=== PATIENT | male | born 1990 ===

== ENCOUNTER 2017-09-08 19:20 | Emergency (ER) | payer MEDICAID ==
[2017-09-08 20:22] VITALS: RESP 19
[2017-09-08] MEDS ORDERED: Albuterol-Ipratrop 3 mg / 0.5 (3 ml) UD INH STA ×4 (21:27→22:38)
--- NOTE | 2017-09-08 21:30 | ED PDOC ---
HPI: SOB/CHF/COPD Time Seen by Provider: 09/08/17 21:22 Chief Complaint (Nursing): Shortness Of Breath Chief Complaint (Provider): SOB History Per: Patient (27 Y/O MALE H/O ASTHMA AND SEASONAL ALLERGIES WHO NOTES RASH/DYSPNEA X 3-4 DAYS WITH CHANGE IN SEASON. STATES HE HAS NO MEDICATION AT HOME (HIS VENTOLIN INHALER IS OUT OF MEDICATIONS). STATES HE FELT TACTILE FEVERS LAST NIGHT DUE TO SYMPTOMS. ) Past Medical History Reviewed: Historical Data, Nursing Documentation, Vital Signs Vital Signs: Last Vital Signs Temp 98.6 F 09/08/17 20:20 Pulse 115 H 09/08/17 20:20 Resp 19 09/08/17 20:20 BP 132/71 09/08/17 20:20 Pulse Ox 94 L 09/08/17 21:30 - Medical History PMH: Asthma - Surgical History Surgical History: Appendectomy - Family History Family History: States: Unknown Family Hx - Immunization History Hx Tetanus Toxoid Vaccination: No Hx Influenza Vaccination: No Hx Pneumococcal Vaccination: No - Home Medications Home Medications: Ambulatory Orders Medication Instructions Recorded Cyclobenzaprine HCl [Flexeril] 1 tab PO TID PRN #25 tab 02/25/15 Naproxen [Naprosyn] 1 tab PO BID PRN #25 tab 02/25/15 Albuterol 0.083% [Albuterol 0.083% 2.5 mg IH Q8 PRN #100 neb 09/09/17 Inhal Mariann (2.5 mg/3 ml) UD] Albuterol HFA [Ventolin HFA 90 2 puff IH [id number] PRN #1 inhaler 09/09/17 mcg/actuation (8 g)] Cetirizine HCl [Zyrtec] 10 mg PO DAILY #15 tab.rapdis 09/09/17 Fluticasone Nasal [Flonase] 2 actuation NS DAILY #1 bottle 09/09/17 predniSONE [predniSONE Tab] 3 tab PO DAILY #12 tab 09/09/17 - Allergies Allergies/Adverse Reactions: Allergies Allergy/AdvReac Type Severity Reaction Status Date / Time No Known Allergies Allergy Verified 02/25/15 09:14 Review of Systems ROS Statement: Except As Marked, All Systems Reviewed And Found Negative Respiratory: Positive for: Cough, Shortness of Breath Physical Exam - Reviewed Nursing Documentation Reviewed: Yes Vital Signs Reviewed: Yes - Physical Exam Appears: Positive for: Well, Non-toxic, No Acute Distress Head Exam: Positive for: ATRAUMATIC, NORMAL INSPECTION, NORMOCEPHALIC Skin: Positive for: Normal Color, Warm, DRY Eye Exam: Positive for: EOMI, Normal appearance, PERRL ENT: Positive for: Normal ENT Inspection Neck: Positive for: Normal, Painless ROM Cardiovascular/Chest: Positive for: Regular Rate, Rhythm Respiratory: Positive for: Normal Breath Sounds, Decreased Breath Sounds, Wheezing Gastrointestinal/Abdominal: Positive for: Normal Exam, Soft Back: Positive for: Normal Inspection Extremity: Positive for: Normal ROM Neurologic/Psych: Positive for: Alert, Oriented - Laboratory Results Result Diagrams: 09/08/17 23:53 09/08/17 23:53 - ECG O2 Sat by Pulse Oximetry: 94 - Progress ED Course And Treament: DUONEB X 3 DOSES PREDNISONE 60 MG X 1 DOSE pateint re-evaluated. Persistent wheezing/sob noted. Duoneb x 4th dose given solumedrol 125 mg iv x 1 dose patient evaluated after 2 hours. Lungs CTAB Disposition - Clinical Impression Clinical Impression: Asthma exacerbation, Seasonal allergies - Patient ED Disposition Is Patient to be Admitted: No - Disposition Disposition: Routine/Home Disposition Time: 00:49 Condition: FAIR Prescriptions: Albuterol HFA [Ventolin HFA 90 mcg/actuation (8 g)] 2 puff IH [id number] PRN #1 inhaler PRN Reason: Shortness Of Breath Albuterol 0.083% [Albuterol 0.083% Inhal Mariann (2.5 mg/3 ml) UD] 2.5 mg IH Q8 PRN #100 neb PRN Reason: Shortness Of Breath Cetirizine HCl [Zyrtec] 10 mg PO DAILY #15 tab.rapdis Fluticasone Nasal [Flonase] 2 actuation NS DAILY #1 bottle predniSONE [predniSONE Tab] 3 tab PO DAILY #12 tab Instructions: Asthma, Adult (DC), Seasonal Allergies in Adults Forms: [employer] [facility] ([place]ic)
[2017-09-08] MEDS ORDERED: Sodium Chloride 0.9% 1,000 ML IV STA (22:38)
[2017-09-08] MEDS ORDERED: Albuterol-Ipratrop 3 mg / 0.5 (3 ml) UD ONE (22:59)
[2017-09-09 00:03] LABS: BASO % 0.5 % (0.0-2.0); EOS # 0.8 K/uL (0.0-0.7); EOS % 7.8 % (0.0-4.0); HEMOGLOBIN 15.4 g/dL (12.0-18.0); LYMPH # 2.4 K/uL (1.0-4.3); LYMPH % 23.5 % (20.0-40.0); MEAN CELL VOLUME 89.6 fl (80.0-94.0); MEAN CORPUSCULAR HEMOGLOBIN 30.9 pg (27.0-31.0); MEAN CORPUSCULAR HGB CONC 34.5 g/dL (33.0-37.0); MONO # 0.8 K/uL (0.0-0.8); MONO % 7.3 % (0.0-10.0); NEUT # 6.3 K/uL (1.8-7.0); NEUT % 60.9 % (50.0-75.0); NRBC % 0.1 % (0.0-0.0); RBC 4.99 Mil/uL (4.40-5.90); RED CELL DISTRIBUTION WIDTH 13.4 % (11.5-14.5); WHITE BLOOD COUNT 10.3 K/uL (4.8-10.8)
[2017-09-09 00:09] LABS: BLOOD UREA NITROGEN 22 mg/dl (9-20); CALCIUM 9.6 mg/dL (8.4-10.2); GFR AFRICAN-AMERICAN > 60; GFR NON-AFRICAN AMERICAN > 60
[2017-09-09 01:13] VITALS: BP 121/80; PULSE 96; TEMP 98.2; O2SAT 97
== END 2017-09-09 01:18 | disposition home or self-care (01) ==
LOC: H.ER 19:20
DX: J45.901 Unspecified asthma with (acute) exacerbation (principal); J30.2 Other seasonal allergic rhinitis
CPT/HCPCS: 80048; 85025; 96361; 96374; 99284; J2930; J7040